=== PATIENT | male | born 1990 | race African-American/Black ===

== ENCOUNTER 2019-10-29 13:35 | Emergency (ER) | payer BC ==
[~2019-10-29] VITALS: Ht 162.6 cm; Wt 110.5 kg
--- NOTE | 2019-10-29 15:40 | RAD ---
EXAM: Abdomen acute complete. HISTORY: Pain. COMPARISON: None. FINDINGS: A frontal view of the chest and frontal upright and supine views of abdomen are obtained. There is no infiltrate, pleural effusion or pneumothorax. The heart is normal in size. There are small nodular opacities overlying the lower thorax due to nipple shadows. There is no evidence of bowel obstruction. There is no intraperitoneal free air. IMPRESSION: 1. No acute pulmonary finding. 2. Nonobstructive bowel gas pattern. Electronically signed by: Katerina Flower MD (10/29/2019 3:37 PM) [facility] [place]
[2019-10-29 16:33] LABS: BILIRUBIN,URINE NEGATIVE (NEG); CLARITY,URINE CLEAR; COLOR,URINE YELLOW; NITRITE,URINE NEGATIVE (NEG); PH,URINE 5.5; PROTEIN,URINE NEGATIVE (NEG-TRACE); UROBILINOGEN,URINE 0.2 mg/dL (0.2 mg/dL)
[2019-10-29 16:56] LABS: BACTERIA,URINE 0 /HPF (0-FEW); RBC,URINE 0 /HPF (0-2); SQUAMOUS EPITHELIAL CELL,UR OCC /LPF; WBC,URINE OCC /HPF (0-4)
[2019-10-29 17:10] VITALS: BP 123/81
--- NOTE | 2019-10-29 17:11 | PHYS DOC ---
Past Medical History Past Medical History: No Pertinent History Alcohol Use: Occasionally Adult General Chief Complaint Chief Complaint: ABDOMINAL PAIN HPI HPI Patient is a 29 year old AA who presents to the emergency department with complaints of bilateral lower abdominal pain that began today. He denies any nausea, vomiting, fever, cough, shortness of breath, dysuria, hematuria, back pain, increased urinary frequency, testicular pain, or abnormal penile discharge. He states earlier today he had a very small bowel movement that was abnormal for him. He denies any recent constipation. Patient denies any rectal bleeding. He states that the pain comes and goes and feels like a cramping sensation. Currently, he rates his pain a 5 out of 10 on the pain scale, he denies any alleviating factors. All other ROS is neg unless otherwise noted in HPI. Review of Systems Review of Systems See Above Physical Exam Physical Exam See Above Constitutional: Well developed, well nourished, no acute distress, non-toxic appearance, obese. [] HENT: Normocephalic, atraumatic, bilateral external ears normal, nose normal. [] Eyes: PERRLA, EOMI, conjunctiva normal, no discharge. [] Neck: Normal range of motion, no stridor. [] Cardiovascular:Heart rate regular rhythm, no murmur [] Lungs & Thorax: Bilateral breath sounds clear to auscultation, Respirations even and unlabored, no retractions, no respiratory distress Abdomen: Bowel sounds normal, soft, no tenderness, no rebound tenderness, negative obturator sign, negative McBurney's, no masses, no pulsatile masses. [] Skin: Warm, dry, no erythema, no rash. [] Back: No CVA tenderness. [] Extremities: No cyanosis, ROM intact, no edema. [] Neurologic: Alert and oriented X 3, no focal deficits noted. [] Psychologic: Affect normal, judgement normal, mood normal. [] Current Patient Data Vital Signs Vital Signs Date Time Temp Pulse Resp B/P (MAP) Pulse Ox O2 Delivery O2 Flow Rate FiO2 10/29/19 14:49 98.2 78 18 157/92 (113) 96 Room Air 98.2 Lab Values Laboratory Tests Test 10/29/19 15:45 Urine Color Yellow Urine Clarity Clear Urine pH 5.5 Urine Specific [place] >=1.030 Urine Protein Negative mg/dL (NEG-TRACE) Urine Glucose (UA) Negative mg/dL (NEG) Urine Ketones (Stick) Negative mg/dL (NEG) Urine Blood Negative (NEG) Urine Nitrite Negative (NEG) Urine Bilirubin Negative (NEG) Urine Urobilinogen Dipstick 0.2 mg/dL (0.2 mg/dL) Urine Leukocyte Esterase Negative (NEG) Urine RBC 0 /HPF (0-2) Urine WBC Occ /HPF (0-4) Urine Squamous Epithelial Cells Occ /LPF Urine Bacteria 0 /HPF (0-FEW) Urine Mucus Slight /LPF EKG EKG [] Radiology/Procedures Radiology/Procedures PROCEDURE: ACUTE ABDOMEN SERIES EXAM: Abdomen acute complete. HISTORY: Pain. COMPARISON: None. FINDINGS: A frontal view of the chest and frontal upright and supine views of abdomen are obtained. There is no infiltrate, pleural effusion or pneumothorax. The heart is normal in size. There are small nodular opacities overlying the lower thorax due to nipple shadows. There is no evidence of bowel obstruction. There is no intraperitoneal free air. IMPRESSION: 1. No acute pulmonary finding. 2. Nonobstructive bowel gas pattern.[] Course & Med Decision Making Course & Med Decision Making Pertinent Labs and Imaging studies reviewed. (See chart for details) Patient is a 29-year-old -Citizen Of [place] male who presented to the emergency department with complaints of nonspecific bilateral lower abdominal pain felt like a cramping sensation. He denied any diarrhea, however reported a smaller than normal bowel movement today. He denied any blood in his stools, urinary symptoms, testicular pain, or abnormal penile discharge. His UA was unremarkable, acute abdominal series revealed a normal nonobstructive bowel gas pattern, no acute findings. Physical exam was not concerning for acute appendicitis, diverticulitis, colitis, or bowel obstruction. Asians vital signs were stable. He was encouraged to follow a clear liquid diet for the next 24 hours, and advance to bland foods such as bananas, rice, applesauce, and toast. Follow-up with primary care doctor symptoms persist, return to the ER if symptoms worsen or he develops a fever. Patient was provided with a work note for today as requested. Patient verbalized an understanding of home care, medications, follow-up, and return to ED instructions and was in agreement with the plan of care. [] Dragon Disclaimer Dragon Disclaimer This electronic medical record was generated, in whole or in part, using a voice recognition dictation system. Departure Departure Impression: Primary Impression: Bilateral lower abdominal pain Disposition: 01 HOME, SELF-CARE Condition: STABLE Referrals: TERE LANGLEY MD (PCP) Patient Instructions: Abdominal Pain (Nonspecific) Additional Instructions: Recommend clear fluids for the next 24 hours. Then you may advance to bland foods such as bananas, rice, applesauce, and dry toast. Follow-up with your primary care doctor in the next 1-2 days. Return to the emergency room if your symptoms worsen or you develop a fever. TAE GUERRA APRN Oct 29, 2019 17:11
== END 2019-10-29 17:27 | disposition home or self-care (01) ==
LOC: ER 13:35
DX: R10.31 Right lower quadrant pain (principal); R10.32 Left lower quadrant pain; R25.2 Cramp and spasm
CPT/HCPCS: 74022; 81001; 99285